=== PATIENT | female | born 1975 | race Caucasian/White ===

== ENCOUNTER 2019-05-20 15:44 | Emergency (ER) | payer OTHER, SELFPAY ==
[2019-05-20 16:31] LABS: #Eosinphils 0.1 thou/uL (0.0-0.7); #Lymphocytes 1.7 thou/uL (1.20-3.40); #Monocytes 0.3 thou/uL (0.11-0.59); #Neutrophils 4.6 thou/uL (1.40-6.50); %Basophils 0.2 % (0.0-1.0); %Lymphocytes 25.6 % (21.0-51.0); %Monocytes 4.3 % (0.0-10.0); %Neutrophils 68.8 % (42.0-75.0); Hemoglobin 13.5 g/dL (12.0-16.0); Mean Corpuscular HGB CONC 34.6 g/dL (32.0-36.0); Mean Corpuscular Hemoglobin 32.5 pg (27.0-31.0); Mean Corpuscular Volume 93.9 fL (78.0-98.0); Mean Platelet Volume 7.2 fL (7.4-10.4); Platelet Count 229 thou/uL (130-400); RBC Distribution Width 11.5 % (11.5-14.5); Red Blood Cell (RBC) Count 4.16 mill/uL (4.20-5.40); White Blood Cell (WBC) Count 6.8 thou/uL (4.8-10.8)
[2019-05-20 16:35] LABS: Bacteria/HPF 1+ HPF (None Seen); Bilirubin Negative (Negative); Blood, Urine 1+ (Negative); Clarity Clear (Clear); Glucose, Urine (Dipstick) Normal (Negative); Leukocyte Negative Leu/uL (Negative); Nitrite Negative (Negative); Protein, Urine (Dipstick) Negative (Neg-Trace); RBC/HPF 0-3 HPF (0-3); Squamous Epithelial None Seen HPF (0-3); Urobilinogen Normal mg/dL (Less than 2); WBC/HPF None Seen HPF (0-3)
[2019-05-20 16:43] LABS: Pregnancy Test - Urine (BHCG) Negative (Negative); Pregu Control Background? CLEAR/WHITE (CLR/WHITE); Pregu Control Bar Appear? YES (CONTROL BAR); Specific Gravity 1.002 (1.002-1.036)
[2019-05-20 16:52] LABS: ALT (SGPT) 15 U/L (8-55); AST (SGOT) 17 U/L (5-34); Albumin 4.1 g/dL (3.5-5.0); Alkaline Phosphatase 54 U/L (40-150); Anion Gap 9 mmol/L (10-20); BUN (Urea Nitrogen) 17 mg/dL (7.0-18.7); Bilirubin, Total 0.3 mg/dL (0.2-1.2); Calc. Creatinine Clearance 0 mL/min (70-130); Calcium 9.4 mg/dL (7.8-10.44); Carbon Dioxide 26 mmol/L (22-29); Chloride 106 mmol/L (98-107); Estimated GFR-MDRD 65; Globulin 2.6 g/dL (2.4-3.5); Glucose 96 mg/dL (70-105); Protein, Total 6.7 g/dL (6.0-8.3); Sodium 137 mmol/L (136-145)
--- NOTE | 2019-05-20 17:11 | CT ---
CT Stone Protocol: 05/20/2019 4:16 PM HISTORY: Kidney stone with abdominal pain COMPARISON: None. TECHNIQUE: Multiple contiguous axial images were obtained and a CT of the abdomen and pelvis without IV contrast . Coronal and sagittal reformats were performed. FINDINGS: This examination is limited for the evaluation of solid organs and vascular structures due to the lac k of intravenous contrast. Lower Chest: within normal limits. Abdomen: Liver: within normal limits. Bile Ducts: Normal caliber. Gallbladder: No calcified gallstones. Normal caliber wall. Pancreas: within normal limits. Spleen: within normal limits. Adrenals: within normal limits. Kidneys: Bilateral nonobstructing renal calcifications measuring up to 5 mm in size on the left. Pelvis: Reproductive Organs: No pelvic masses. Ureters: 4 mm calcification at the right ureterovesical junction with mild enlargement of the right u reter. Bladder: within normal limits. Bowel: Normal caliber. Normal appendix. Mesenteric Lymph Nodes: No enlarged mesenteric lymph nodes. Peritoneum: No ascites or free air, no fluid collection. Vessels: Normal caliber aorta Retroperitoneum: within normal limits. Abdominal Wall: within normal limits. Bones: Unremarkable. IMPRESSION: 1. Right ureteral calcification with mild right hydronephrosis 2. Bilateral nonobstructing renal calcifications
[2019-05-20] MEDS ORDERED: Ondansetron ODT 4 MG TAB ONE (17:29)
[2019-05-20] MEDS ORDERED: HYDROcodone/Acetaminophen 7.5/325 mg Tablet ONE (17:29)
== END 2019-05-20 18:30 | disposition home or self-care (01) ==
LOC: ERS 15:44
DX: N13.2 Hydronephrosis with renal and ureteral calculous obstruction (principal); F32.9 Major depressive disorder, single episode, unspecified
CPT/HCPCS: 36415; 74176; 80053; 81003; 81015; 81025; 85025; 87086; Q0162

== ENCOUNTER 2019-06-02 11:33 | Outpatient (CLI) | payer BC ==
[2019-06-02 16:54] LABS: Hemoglobin 14.5 g/dL (12.0-16.0); Mean Corpuscular HGB CONC 35.1 g/dL (32.0-36.0); Mean Corpuscular Hemoglobin 32.5 pg (27.0-31.0); Mean Corpuscular Volume 92.6 fL (78.0-98.0); Mean Platelet Volume 7.8 fL (7.4-10.4); Platelet Count 246 thou/uL (130-400); RBC Distribution Width 11.4 % (11.5-14.5); Red Blood Cell (RBC) Count 4.47 mill/uL (4.20-5.40); White Blood Cell (WBC) Count 6.4 thou/uL (4.8-10.8)
[2019-06-02 16:57] LABS: PTT 33.6 SEC (22.9-36.1); Prothrombin Time 12.8 SEC (12.0-14.7)
[2019-06-02 17:00] LABS: BHCG - Serum Negative (NEGATIVE); Pregs Control Background? CLEAR/WHITE (CLR/WHITE); Pregs Control Bar Appear? YES (CONTROL BAR)
[2019-06-02 17:01] LABS: Bilirubin Negative (Negative); Blood, Urine Negative (Negative); Clarity Clear (Clear); Glucose, Urine (Dipstick) Normal (Negative); Leukocyte Negative Leu/uL (Negative); Nitrite Negative (Negative); Protein, Urine (Dipstick) Negative (Neg-Trace); RBC/HPF 0-3 HPF (0-3); Squamous Epithelial 0-3 HPF (0-3); Urobilinogen Normal mg/dL (Less than 2); WBC/HPF 0-3 HPF (0-3)
[2019-06-02 17:09] LABS: Bacteria/HPF 1+ HPF (None Seen)
[2019-06-02 17:14] LABS: Anion Gap 11 mmol/L (10-20); BUN (Urea Nitrogen) 16 mg/dL (7.0-18.7); Calc. Creatinine Clearance 0 mL/min (70-130); Calcium 9.3 mg/dL (7.8-10.44); Carbon Dioxide 23 mmol/L (22-29); Chloride 107 mmol/L (98-107); Estimated GFR-MDRD 52; Glucose 93 mg/dL (70-105); Potassium 4.3 mmol/L (3.5-5.1); Sodium 137 mmol/L (136-145)
== END 2019-06-02 11:34 | disposition home or self-care (01) ==
LOC: LABBT 11:33
PROVIDERS: ATTEND Urology
DX: Z01.818 Encounter for other preprocedural examination (principal); N20.0 Calculus of kidney
CPT/HCPCS: 80048; 81001; 84703; 85027; 85610; 85730; 87086; 93005; 93010

== ENCOUNTER 2019-06-09 09:48 | Day surgery (SDC) | payer BC ==
[2019-06-02 16:17] VITALS: BMI 26.2
[2019-06-09] MEDS ORDERED: Levofloxacin 500 mg/D5W 100 ml Premix Bag ONE (11:40)
[2019-06-09] MEDS ORDERED: Fentanyl 100 MCG/2 ML VIAL ONE ×3 (13:32→15:32)
[2019-06-09] MEDS ORDERED: Hyoscyamine Sulfate SL 0.125 mg Tablet ONE (14:06)
[2019-06-09] MEDS ORDERED: B & O ONE (14:06)
[2019-06-09] MEDS ORDERED: Phenazopyridine HCl 97.5 MG TABLET ONE (14:48)
[2019-06-09] MEDS ORDERED: Ondansetron PF 4 MG/2 ML Vial ONE ×2 (15:12→17:20)
[2019-06-09] MEDS ORDERED: Promethazine HCl 25 MG/ML VIAL ONE (15:20)
[2019-06-09] MEDS ORDERED: HYDROcodone/Acetaminophen 5/325 mg Tablet ONE (16:19)
--- NOTE | 2019-06-09 16:22 | OP ---
DATE OF PROCEDURE: 06/09/2019 SERVICE: Urology. PREOPERATIVE DIAGNOSES: Possible right distal ureteral stone, left renal stones. POSTOPERATIVE DIAGNOSES: Left renal stones, passed right ureteral stone. PROCEDURES PERFORMED: Right diagnostic ureteroscopy, Left ureteroscopy, laser lithotripsy, basket extraction of stones, placement of 6 x 24 double-J stent. INDICATIONS FOR PROCEDURE: Ms. Patel is a 43-year-old white female, who initially presented to me with right flank pain. She went to the ER and was diagnosed with a right distal ureteral stone. She stated that before seeing me in the office that she felt that the pain had somewhat subsided but was not entirely sure that she passed a stone. She had additional stones in the left kidney, which are slightly larger in size. She did not want to try and pass these and elected for elective removal of the stones with ureteroscopy. Risks and benefits were discussed and she has agreed to proceed forward. DESCRIPTION OF PROCEDURE: After identification of armband and verification consent, the patient was brought back to the operating room, where she underwent general anesthesia with an LMA. She was placed in dorsal lithotomy position, prepped and draped in usual sterile fashion. After appropriate time-out, a lubricated 22- [place] rigid cystoscope was introduced per urethra and into the bladder. A diagnostic cystoscopy was performed and there were no stones or abnormalities found within the bladder. The bladder was healthy. Both ureters in orthotopic location. The urethra is normal. The cystoscope was then removed and a semi-rigid ureteroscope was brought in and cannulated through the right distal ureter without trauma. Ureteroscopy was performed up to the midureter and no stone was encountered. Satisfied that the right stone had passed. The ureteroscope was then used to cannulate the left ureteral orifice. A 0.035 Sensor wire was advanced up to the level of renal pelvis and then the ureteroscope removed. A dual-lumen catheter was then advanced over the Sensor wire up to the level of the mid ureter. An Amplatz Super Stiff wire was then placed through the second lumen up to the level of the kidney and then the dual-lumen removed. The Sensor wire was affixed to the drapes as a safety wire. An 11/13 x 36 cm ureteral access sheath was then advanced over the Super Stiff wire up to the level of the midureter, but I could not advance any further despite attempted manipulation. I decided to leave the sheath at this point and remove the inner cannula and Super Stiff wire with a large portion of the ureteral access sheath hanging outside the body. We then used the ureteral access sheath to gain entry using the flexible digital ureteroscope up through the remainder of the ureter up into the kidney. Two larger stones were found, one in the upper pole, one in the midpole, and a lower pole smaller stone. The larger stones were fragmented with using a 200 ball-tip micron laser fiber and then all pieces removed using a 1.9-[place] ZeroTip Nitinol basket. Upon completion, there were no stone fragments seen anywhere in the kidney. There was one stone somewhat embedded into the renal papilla towards the upper pole that was too small to graft and too embedded in the renal papilla. To avoid bleeding, I opted to leave this alone. The pull-back ureteroscopy was employed. No additional stones were found in the ureter. The sheath and ureteroscope were then removed and the cystoscope was back loaded with Sensor wire back in the bladder. A 6 x 24 double-J stent with no string was advanced over the Sensor wire up into the kidney. The wire was removed leaving a partial curl in the kidney and a good curl in the bladder. The bladder was then emptied and cystoscope removed. A B and O suppository were placed in the patient's rectum and the patient was then awakened and taken back to the PACU for recovery in stable condition. COMPLICATIONS: None. ESTIMATED BLOOD LOSS: Minimal. RETAINED TUBES AND DRAINS: A 6 x 24 double-J stent on the left with no string. SPECIMENS: Stone for stone analysis. DISPOSITION: The patient will be discharged home and follow up with me in 1 week for cysto stent removal. Job ID: [id number] [facility]
[2019-06-09] MEDS ORDERED: ePHEDrine 50 MG/ML VIAL ONE (17:20)
[2019-06-09] MEDS ORDERED: Lidocaine 1% PF 5 ML VIAL ONE (17:20)
[2019-06-09] MEDS ORDERED: PROPOFOL 200 MG/20 ML VIAL ONE (17:20)
[2019-06-09] MEDS ORDERED: Dexamethasone 20 MG/5 ML VIAL ONE (17:20)
[2019-06-14 15:10] LABS: CA Oxalate Monohydrate 90 % (.); CA Phosphate 10 % (.); Color Brown (.)
== END 2019-06-09 17:00 | disposition home or self-care (01) ==
LOC: SDC 09:48
PROVIDERS: ATTEND Urology
PROC: 0T778DZ Dilation of Left Ureter with Intraluminal Device, Via Natural or Artificial Opening Endoscopic (ICD-10-PCS; principal; 2019-06-09)
PROC: 0TF48ZZ Fragmentation in Left Kidney Pelvis, Via Natural or Artificial Opening Endoscopic (ICD-10-PCS; principal; 2019-06-09)
DX: N20.0 Calculus of kidney (principal); F32.9 Major depressive disorder, single episode, unspecified; Z79.899 Other long term (current) drug therapy
CPT/HCPCS: 76000; 82365; 88300; C1769; J1100; J1956; J2001; J2405; J2550; J2704; J3010; J3490